=== PATIENT | male | born 1955 | race Caucasian/White ===

== ENCOUNTER → 2016-11-25 | Outpatient (CLI) | payer OTHER ==
[~2016-11-25] VITALS: Ht 167.6 cm; Wt 83.0 kg
[~2016-11-25] MED LIST: ADULT LOW DOSE81 MG PO; ALLEGRA ALLERG180 MG PO; ALLEGRA180 MG PO; AMITRIPTYLINE H10 M1 PO; ASPIR 8181 MG PO; ATIVAN0.5 MG PO; BRILINTA90 MG PO; CALCIUM; CALCIUM 600 +1 EAC9 PO; CARAFATE 1 GM TA1 G1 PO; CARDIZEM CD240 MG PO; CARVEDILOL12.5 MG PO; CELEBREX 200 M200 MG PO; CHONDROITIN SU250 MG PO; COREG PO; CRESTOR20 MG PO; DICLOFENAC SODI75 M1 PO; DIPHENHIST50 MG PO; FENTANYL PA12 MCG/HR TD; FISH OIL 1,0001 EAC5 PO; GLUCOSAMINE HC500 MG; HYDROCODON-ACE1 EAC8 PO; HYDROCODONE-AP1 EA11 PO; HYDROCODONE-AP1 EAC6 PO; HYDROXYZINE HCL25 M1 PO; HYSINGLA ER20 MG PO; HYSINGLA ER40 MG PO; LEVSIN-SL0.125 MG SL; LIPITOR40 MG PO; LISINOPRIL20 MG PO; MAGNES; MULTIVITAMINS; NAPROSYN375 MG PO; NEURONTIN300 MG PO; NEURONTIN600 MG PO; NITROGLYCERIN0.4 MG SL; NORCO 5-325 TA1 EACH PO; OMEPRAZOLE 20 M20 MG PO; OXYCODONE-ACET1 EACH PO; PERCOCET 5-3251 EACH PO; PLAVIX 75 MG TA75 M1 PO; PREDNISONE 10 M10 M1; PROTONIX 20 MG20 M1 PO; PROTONIX 20 MG20 MG PO; PROTONIX40 M1 PO; PROTONIX40 M2 PO; RANEXA500 MG PO; RANITIDINE 150150 MG PO; RELAFEN750 MG PO; SUBOXONE 2 MG-1 EACH SL; TIZANIDINE HCL 22 M1 PO; TORVASTATIN PO; VITAMIN B-12500 MCG PO; VITAMIN D35000 UNI1; VITAMIN D400 UNI1 PO; VOLTAREN GEL 1100 G1 TOP; VOLTAREN GEL 1100 G2 TOP; ZANAFLEX2 M1 PO; ZANAFLEX4 MG PO; ZOCOR80 MG PO; [UNRECOGNIZED DRUG - OTHER]
--- NOTE | ~2016-11-25 | HPC ---
[facility] [place] [address] PAIN MANAGEMENT CONSULTATION Name: SCOOTER GATES Room #: REG MYRA Barcenas#: [id number] Admission: 11/25/16 Attend Phys: Felipe Simpson DO Discharge: Date of : 55 Report #: [id number] THIS REPORT FOR: //name// CC: Ton Simpson HISTORY OF PRESENT ILLNESS: The patient is a 61-year-old gentleman typically treated for axial back pain, chest pain, DJD, right shoulder requiring complex medication management. Last seen in the pain clinic 08/31/2016. The patient was having some increasing pain issues, ended up using a short course (1 month) of Duragesic 12 mcg and continued hydrocodone for breakthrough pain 5 mg 1 tablet 2-3 times a day, limit 75 tablets for 30 days. I gave him a second prescription to be released in 4 weeks for simply hydrocodone alone without Duragesic. Urine drug screen 09/30/2016 was positive for prescribed medication. He returns to the pain clinic today, we had a prolonged visit from 10:20-10:47, greater than 30% of the 25+ minute visit was spent in counseling the patient. Has a long history of symptoms subsequent to our last visit. 10/13/2016, the patient noted a significant exacerbation of pain with paresthesia in his lower legs bilateral and subjectively in his hands. The patient is currently on Plavix due to a recent cardiac cath and angioplasty. The patient claims he developed significant bruise in the left lower extremity after developing what he felt like a "alok horse " in his calf. He is fairly dramatic in describing his symptoms, notes that his prayer group prayed for him and symptoms spontaneously resolved. Overall, he states in the 10-day course between 10/13/2016 to 10/23/2016, all of the radicular symptoms in his hands and right foot resolved, the left leg pain got dramatically better, now has a small paresthesia distal aspect of the left foot. Ongoing pain in the right knee following a misstep and some minor trauma to the right knee at the beginning of the year. He states he had fluid on the knee and ecchymosis in the area, but this too seemingly resolved. Currently, taking hydrocodone 5/325 one or two a day with overall improvement of baseline pain. Notes today subjective pain score is typically 3 on a 0-10 visual analog scale. Primary pain, most recently right knee, left chest and chronically right shoulder. PHYSICAL EXAMINATION: GENERAL: Shows a 61-year-old gentleman, BMI is 29.6 kilograms per meter squared. Blood pressure 148/89, pulse 71, respirations 16. NEUROLOGIC: Alert and oriented to person, place and time, judged to be a reasonable historian, modest. MUSCULOSKELETAL: Decreased range of motion right shoulder. Chest pain is not reproducible with palpation. EXTREMITIES: Rises from chair using armrest. Gait is tandem. Right knee shows the ligaments intact including medial and lateral collaterals as well as anterior and posterior cruciate ligaments. Patellar is easily deviated without crepitance, though he does have a little sense of fullness in the posterior [address] [address] PAIN MANAGEMENT CONSULTATION Name: SCOOTER GATES Room #: REG [facility] Swapna#: [id number] Admission: 11/25/16 Attend Phys: Felipe Simpson, DO Discharge: Date of : 55 Report #: [id number] aspect of the knee (Baldwin cyst?). Distally lower extremity strength to dorsiflexion, plantar flexion, extension, flexion is good. Some subjective pain in the right knee with resistance to lower extremity extension. Gait is generally tandem. We reviewed the fact that opiate medications are being used to provide analgesia adequate to support activities of daily living, not attempting to achieve a specific pain score on the 0-10 Visual Analog Scale. The current opiate medications are providing sufficient analgesia to allow the patient to participate in activities of daily living. The patient is not exhibiting any aberrant behavior suggestive of drug diversion. The patient is not having any adverse reactions to medications. The patient is not suffering from daytime somnolence or mental acuity changes. The patient is managing opiate-induced constipation with appropriate vtji-dom-rdgsspz agents and dietary considerations. The patient was counseled on concern for caution with operating a motor vehicle while using opiate medications. A physical exam was performed and the patient's functional status was evaluated. All patients with back pain were advised against the bed rest greater than 4 days and were advised to return to normal activities. Pain score assessment was noted and the treatment plan was reviewed with the patient. All current medications, both prescribed and OTC were reviewed and reconciled on the electronic medical record. Tobacco screening was accomplished and smoking cessation was advised when indicated. BMI was noted and diet/exercise modification was recommended for all patients following outside normal parameters. I reviewed with the patient today their responsibilities to safeguard prescription medications, reviewed their responsibility to utilize medications only as prescribed by the physician. They are to seek and receive pain medications only from 1 physician group ( [facility]). They are to use 1 pharmacy and keep the clinic informed if they change pharmacies. Their responsibilities include making followup visits in a timely fashion and to avoid abrupt discontinuation of medication usage. Their responsibilities further include bringing their medications (bottles from the pharmacy with residual pills) to the visit for possible confirmation of pill counts and the patient understands it is their responsibility to submit to random drug screens to ensure both that the medications prescribed are present, and that no other controlled substances are present. All prescriptions provided today were generated electronically. ASSESSMENT: Axial back pain, chest pain historically secondary to factor X, angina, right shoulder degenerative joint disease by history requiring complex medication management. RECOMMENDATIONS: Continue hydrocodone 5/325 one tablet 2-3 times a day, limit 75 tablets for 30 days. I have taken the liberty of writing for 2 months of current medication, continue tizanidine 4 mg up to 3 times a day and [address] [address] PAIN MANAGEMENT CONSULTATION Name: SCOOTER GATES Room #: REG CL Swapna#: [id number] Admission: 11/25/16 Attend Phys: Feilpe Simpson DO Discharge: Date of : 55 Report #: [id number] gel topically for right knee. The patient was discharged in good and stable condition. <ELECTRONICALLY SIGNED> By: Felipe Simpson DO 11/29/16 1228 [id number] Felipe Simpson DO /nt
[2016-11-25 10:18] VITALS: BP 148/89
== END | disposition home or self-care (01) ==
LOC: PAIN 07:09
DX: M54.9 Dorsalgia, unspecified (principal); R07.9 Chest pain, unspecified; G89.29 Other chronic pain; I20.9 Angina pectoris, unspecified; M19.011 Primary osteoarthritis, right shoulder

== ENCOUNTER → 2017-01-31 | Outpatient (CLI) | payer OTHER ==
[~2017-01-31] VITALS: Ht 167.6 cm; Wt 83.0 kg
--- NOTE | ~2017-01-31 | HPC ---
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 He has had annual cardiac cath due to this, last fall he had cardiac cath and has first stent placed. He is now on Brilinta. Last visit, he was having some increasing pain in his right knee. I thought it detected some fullness in the posterior aspect, referred to orthopedics. They decided he did not have a Baldwin cyst and apparently did a steroid injection about 2 weeks ago in his knee. The patient states this afforded "2 weeks" of relief, pain remains problematic. He rates his pain 2-3 presently, 5 on a 0-10 visual analog scale at worse. Chronic pain left chest, right knee and right shoulder. He tells me though he has been taking tizanidine for some time he thinks it makes him "dizzy" at bedtime. He does take it only at night. This is the first time he has relayed this information to me. I had increased the dose from 2 to 4 mg sometime ago. I suggested drop down to 2 mg or simply discontinue, it is not the as needed to be "weaned off." We talked today at length about increasing physical activity. He is actually scheduled to start physical therapy for his knee next week. He tells me that he is disabled and has been actually disabled for quite some time. I asked him what he does during the day. 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 PHYSICAL EXAMINATION: Shows a 61-year-old gentleman, BMI is 29.6 kilograms per meter squared. Blood pressure 142/77, pulse 74, respirations 15. Again, subjective pain score 2-3 on a 0-10 visual analog scale at present, primarily left chest, right knee, chronic right shoulder. Rises from chair easily. Gait is actually tandem. Lower extremity strength appears preserved. We reviewed the fact that opiate medications are being used to provide analgesia adequate to support activities of daily living, not attempting to achieve a specific pain score on the 0-10 Visual Analog Scale. The current opiate medications are providing sufficient analgesia to allow the patient to participate in activities of daily living. The patient is not exhibiting any aberrant behavior suggestive of drug diversion. The patient is not having any adverse reactions to medications. The patient is not suffering from daytime somnolence or mental acuity changes. The patient is managing opiate-induced constipation with appropriate kcab-url-ffggqni agents and dietary [address] [address] PAIN MANAGEMENT CONSULTATION Name: SCOOTER GATES Room #: REG MYRA Barcenas#: [id number] Admission: 01/31/17 Attend Phys: Felipe Simpson DO Discharge: Date of : 55 Report #: [id number] considerations. The patient was counseled on concern for caution with operating a motor vehicle while using opiate medications. A physical exam was performed and the patient's functional status was evaluated. All patients with back pain were advised against the bed rest greater than 4 days and were advised to return to normal activities. Pain score assessment was noted and the treatment plan was reviewed with the patient. All current medications, both prescribed and OTC were reviewed and reconciled on the electronic medical record. Tobacco screening was accomplished and smoking cessation was advised when indicated. BMI was noted and diet/exercise modification was recommended for all patients following outside normal parameters. I reviewed with the patient today their responsibilities to safeguard prescription medications, reviewed their responsibility to utilize medications only as prescribed by the physician. They are to seek and receive pain medications only from 1 physician group ( [facility]). They are to use 1 pharmacy and keep the clinic informed if they change pharmacies. Their responsibilities include making followup visits in a timely fashion and to avoid abrupt discontinuation of medication usage. Their responsibilities further include bringing their medications (bottles from the pharmacy with residual pills) to the visit for possible confirmation of pill counts and the patient understands it is their responsibility to submit to random drug screens to ensure both that the medications prescribed are present, and that no other controlled substances are present. All prescriptions provided today were generated electronically. The patient continues to take gabapentin 600 mg 4 times a day. We will discontinue tizanidine, continue hydrocodone 5/325, use this fairly infrequently. I have elected to give him a prescription for 75 tablets with a second prescription to release in 4 weeks for 75 tablets. Typically 150 tablets should last him about 3 months. We will see him back at that time, earlier if needed. We reviewed his prior urine drug screen from 09/30/2016, positive for prescribed medications, hydrocodone, but no tizanidine. Again, suggest discontinue tizanidine. Discharged in good and stable condition, the patient was seen from approximately 10 a.m. to 10:30. Greater than 50% of this time was spent reviewing the patient's health history, counseling the patient, encouraged increased physical activity and PT. By: [id number] Felipe Simpson DO /nt
[2017-01-31 10:03] VITALS: BP 142/77
== END ==
LOC: PAIN 06:41
DX: R07.89 Other chest pain (principal); M25.561 Pain in right knee; M25.511 Pain in right shoulder; I10 Essential (primary) hypertension

== ENCOUNTER → 2017-04-01 | Outpatient (CLI) | payer OTHER ==
[~2017-04-01] VITALS: Ht 167.6 cm; Wt 79.4 kg
--- NOTE | ~2017-04-01 | HPC ---
[facility] [place] [address] [place] [address] PAIN MANAGEMENT CONSULTATION Name: SCOOTER GATES Room #: REG MYRA Swapna#: [id number] Admission: 04/01/17 Attend Phys: Dulce Maria Ybarra MD Discharge: Date of : 55 Report #: [id number] THIS REPORT FOR: //name// CC: Dulce Maria Ann DATE OF SERVICE: 04/01/2017 FOLLOWUP COMPLAINT: Here for medication renewal. FOLLOWUP HISTORY OF PRESENT ILLNESS: The patient is a 61-year-old gentleman who has been followed in the pain clinic because of chronic pain involving his right shoulder. He states that he may have to have the shoulder revision. He has had a number of operations on the shoulder in the past. He has some right knee pain, some left chest pain. Overall, he feels that his pain has improved with use of his current medical regimen. He was taking tizanidine. He felt that this made him dizzy. He notes now that he has not used it, it increased pain and muscle spasms. He feels that taking one-half of a pill, which would be about 2 mg was more efficacious with less of dizziness. He would like to have this medication restarted at this time. PHYSICAL EXAMINATION: The patient is alert. He appears to be taking his medication as prescribed. He does not have any problems with mentation. Blood pressure 110/72, pulse 58, respiratory rate 14, room air saturation 98%. Height 5 feet 6 inches, weight 79 kilograms, BMI is 28.3. The patient has not fallen since we saw him last and has suffered in the past from dizziness and vertigo. IMPRESSION: 1. Chronic left chest pain. 2. Right knee pain. 3. Right shoulder pain with possibility of having a reevaluation and possible surgery in the future. RECOMMENDATIONS: We discussed treatment options with the patient. We will continue with his current medical regimen of tizanidine 2 mg 1 p.o. b.i.d. as needed, hydrocodone 5/325, 70 tablets, gabapentin 600 mg q.i.d. on a regular basis. We would like to thank you for letting us participate in his care. We hope he continues to improve. By: [id number] Dulce Maria Ybarra MD /jameson
[2017-04-01 08:10] VITALS: BP 110/72
== END | disposition home or self-care (01) ==
LOC: PAIN 06:32
DX: M25.511 Pain in right shoulder (principal); M25.561 Pain in right knee; R07.9 Chest pain, unspecified

== ENCOUNTER → 2017-04-25 | Outpatient (CLI) | payer OTHER ==
[~2017-04-25] VITALS: Ht 167.6 cm; Wt 81.8 kg
[~2017-04-25] MED LIST changes: +NORVASC5 MG PO; +TESTOSTERO200 MG/1 M IM
--- NOTE | ~2017-04-25 | HPC ---
[facility] [place] [address] [place] [address] PAIN MANAGEMENT CONSULTATION Name: SCOOTER GATES Room #: REG MYRA Swapna#: [id number] Admission: 04/25/17 Attend Phys: Felipe Simpson DO Discharge: Date of : 55 Report #: [id number] THIS REPORT FOR: //name// CC: Ton Simpson The patient is a 61-year-old gentleman, long known to the pain clinic, typically treated for chest wall plan. He has an atypical cardiac disease (cardiac factor X), right shoulder pain, right knee pain as primary pain generators. He was last seen in the pain clinic by my partner, Dr. Jax Ybarra on 04/01/2017, continued on his baseline medication including hydrocodone 5/325, limit 75 tablets for 30 days; gabapentin 600 mg up to 4 a day, and tizanidine 2 mg b.i.d. Tizanidine was decreased from 4 mg due to some subjective vertigo and presyncope with 4 mg tablet. He returns to pain clinic today. Planning on moving forward with right shoulder rotator cuff repair by Dr. Tim Carrillo on the . The patient has had multiple surgeries on his right shoulder. He notes otherwise his pain is a 5-6 on a 0-10 visual analog scale. He notes ongoing pain, right knee, right shoulder and chest. Describes chronic dull pressure issues. PHYSICAL EXAMINATION: Shows a 61-year-old gentleman, BMI is 29.1 kg/m2. Vital signs are stable as noted in the EMR. Cervical range of motion is adequate. Right shoulder range of motion is modestly diminished. Diffuse chest pain. Gait is tandem. He has had issues with ballotable right knee edema, though, none is present at this time. Last urine drug screen 09/30/2016, was positive for prescribed medication. ASSESSMENT: Symptomatic chronic chest pain secondary to cardiac factor X, right shoulder pain secondary to degenerative joint disease and rotator cuff tear, right knee degenerative joint disease and osteoarthritis pain, chronic. We reviewed the fact that opiate medications are being used to provide analgesia adequate to support activities of daily living, not attempting to achieve a specific pain score on the 0-10 Visual Analog Scale. The current opiate medications are providing sufficient analgesia to allow the patient to participate in activities of daily living. The patient is not exhibiting any aberrant behavior suggestive of drug diversion. The patient is not having any adverse reactions to medications. The patient is not suffering from daytime somnolence or mental acuity changes. The patient is managing opiate-induced constipation with appropriate luiw-cop-eqidcve agents and dietary considerations. The patient was counseled on concern for caution with operating a motor vehicle while using opiate medications. A physical exam was performed and the patient's functional status was evaluated. All patients with back pain were advised against the bed rest greater than [address] [place] [address] PAIN MANAGEMENT CONSULTATION Name: SCOOTER GATES Room #: REG [facility].#: [id number] Admission: 04/25/17 Attend Phys: Felipe Simpson DO Discharge: Date of : 55 Report #: [id number] days and were advised to return to normal activities. Pain score assessment was noted and the treatment plan was reviewed with the patient. All current medications, both prescribed and OTC were reviewed and reconciled on the electronic medical record. Tobacco screening was accomplished and smoking cessation was advised when indicated. BMI was noted and diet/exercise modification was recommended for all patients following outside normal parameters. I reviewed with the patient today their responsibilities to safeguard prescription medications, reviewed their responsibility to utilize medications only as prescribed by the physician. They are to seek and receive pain medications only from 1 physician group ( [facility]). They are to use 1 pharmacy and keep the clinic informed if they change pharmacies. Their responsibilities include making followup visits in a timely fashion and to avoid abrupt discontinuation of medication usage. Their responsibilities further include bringing their medications (bottles from the pharmacy with residual pills) to the visit for possible confirmation of pill counts and the patient understands it is their responsibility to submit to random drug screens to ensure both that the medications prescribed are present, and that no other controlled substances are present. All prescriptions provided today were generated electronically. RECOMMENDATION: We will continue baseline medication unchanged, hydrocodone 5/325, limit 75 tablets for [address] Carrillo wants to write for a short course of the postoperative narcotic, I am okay with that, typically with shoulder immobilized for 6 weeks. Postoperative time , I did take the liberty of changing his release in 4 weeks prescription to increase the tablets from 75-90 tablets for 30 days (hydrocodone 5/325) to enable a little increase use during his acute rehab following that shoulder. I will see him back in 2 months for reevaluation, we will likely drop back to 75 tablets (hydrocodone 5/325), continue the tizanidine 2 mg and gabapentin unchanged. Discharged in good and stable condition. By: [id number] Felipe Simpson, DO /nt
[2017-04-25 10:30] VITALS: BP 133/77
== END | disposition home or self-care (01) ==
LOC: PAIN 06:39
DX: R07.89 Other chest pain (principal); M19.011 Primary osteoarthritis, right shoulder; M75.101 Unspecified rotator cuff tear or rupture of right shoulder, not specified as traumatic; G89.29 Other chronic pain; Z98.890 Other specified postprocedural states; Z88.0 Allergy status to penicillin; Z91.040 Latex allergy status; Z88.8 Allergy status to other drugs, medicaments and biological substances; Z79.82 Long term (current) use of aspirin; Z79.899 Other long term (current) drug therapy

== ENCOUNTER → 2017-06-24 | Outpatient (CLI) | payer OTHER ==
[~2017-06-24] VITALS: Ht 167.6 cm; Wt 79.5 kg
[~2017-06-24] MED LIST changes: +PERCOCET 7.5-31 EACH PO; +RANEXA1000 MG PO
--- NOTE | ~2017-06-24 | HPC ---
[facility] [place] [address] PAIN MANAGEMENT CONSULTATION Name: SCOOTER GATES Room #: REG MYRA Barcenas#: [id number] Admission: 06/24/17 Attend Phys: Felipe Simpson DO Discharge: Date of : 55 Report #: [id number] THIS REPORT FOR: //name// CC: Ton Simpson DATE OF SERVICE: 06/24/2017 The patient is a 61-year-old gentleman well known to the [facility], long treated for chest wall pain. He has cardiac factor X, a coronary condition, which does cause some transient ischemia, though it is of microvascular disease and typically does not require endovascular intervention, though he has had cardiac stent within the past year. He has had cardiac factor X for some 2-3 decades now. Also he is having ongoing right shoulder pain, actually chronic bilateral shoulder pains, but did have his fifth right shoulder surgery, 05/09, with Dr. Carrillo. I had enabled him to get analgesics from Dr. Carrillo ostensibly thinking this would last about 2-4 weeks. He has had actually 200 Percocet 7.5/325 tablets since surgery on 05/09/2017. He had 40 tablets dispensed, 05/09/2017, 40 tablets dispensed on 05/16/2017, 60 tablets dispensed on 05/20/2017 and most recently had 60 tablets dispensed on 05/31/2017. He tells me he has about half of this latter prescription left. I suggested that patient should discontinue Percocet when he finishes current prescription. He understands that there will certainly be pain in his bilateral shoulders and ongoing chest pain. We are simply trying to help decrease pain to the point that he is a little more functional. PHYSICAL EXAMINATION: Shows a 61-year-old gentleman. BMI is 28.3 kg/m2. Alert and oriented to person, place and time. Judged to be a reasonable historian. Complaining of ongoing pain, right shoulder and left chest. Rates his pain as 3 on a VAS. 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 Blood pressure 151/92, pulse 70, respirations 16. Cervical range of motion is full. Upper extremity strength does show some decreased range of motion, abduction and extension on the right arm, though it is fairly nominal. Hand grasp is symmetric. Rises from chair using armrest. Gait is tandem. Lower extremity strength is preserved. Lumbar flexion is good. We reviewed the fact that opiate medications are being used to provide analgesia adequate to support activities of daily living, not attempting to achieve a specific pain score on the 0-10 Visual Analog Scale. The current opiate medications are providing sufficient analgesia to allow the patient to participate in activities of daily living. The patient is not exhibiting any aberrant behavior suggestive of drug diversion. The patient is not having any adverse reactions to medications. The patient is not suffering from daytime somnolence or mental acuity changes. The patient is managing opiate-induced constipation with appropriate jlom-yuv-ddhnkkx agents and dietary [address] [address] PAIN MANAGEMENT CONSULTATION Name: KODYSCOOTEREDGAR SIMPSON Room #: REG MYRA Barcenas#: [id number] Admission: 06/24/17 Attend Phys: Felipe Simpson DO Discharge: Date of : 55 Report #: [id number] considerations. The patient was counseled on concern for caution with operating a motor vehicle while using opiate medications. A physical exam was performed and the patient's functional status was evaluated. All patients with back pain were advised against the bed rest greater than 4 days and were advised to return to normal activities. Pain score assessment was noted and the treatment plan was reviewed with the patient. All current medications, both prescribed and OTC were reviewed and reconciled on the electronic medical record. Tobacco screening was accomplished and smoking cessation was advised when indicated. BMI was noted and diet/exercise modification was recommended for all patients following outside normal parameters. I reviewed with the patient today their responsibilities to safeguard prescription medications, reviewed their responsibility to utilize medications only as prescribed by the physician. They are to seek and receive pain medications only from 1 physician group ( [facility]). They are to use 1 pharmacy and keep the clinic informed if they change pharmacies. Their responsibilities include making followup visits in a timely fashion and to avoid abrupt discontinuation of medication usage. Their responsibilities further include bringing their medications (bottles from the pharmacy with residual pills) to the visit for possible confirmation of pill counts and the patient understands it is their responsibility to submit to random drug screens to ensure both that the medications prescribed are present, and that no other controlled substances are present. All prescriptions provided today were generated electronically. ASSESSMENT: Chronic pain syndrome requiring complex medication management, chest wall pain in a gentleman with a history of cardiac factor X. Bilateral shoulder degenerative joint disease, status post most recent right shoulder surgery. He has had about 5 surgeries right shoulder and one surgery on left shoulder. He requires high-risk complex medication management. RECOMMENDATION: Long discussion with the patient today about therapeutic options. 1. He may continue the most recent prescription from Dr. Carrillo, but we will allow him no other opiates from other physicians. We will resume strict adherence to our opiate consent to treat contract. 2. I will take the liberty of renewing hydrocodone 5/325 one tablet 2-3 times a day. I will take the liberty of writing for 2 months' current medications. Continue gabapentin 600 mg q.i.d. Zanaflex 2 mg t.i.d. with 2-3 at bedtime, dispensed 150 tablets with 2 refills. It appears the last urine drug screen was on 09/30/2016. At next visit, we will want to get a buccal drug swab. No aberrant behavior suggestive for drug diversion, simply ensuring compliance with our opiate consent to treat contract. [address] [address] PAIN MANAGEMENT CONSULTATION Name: SCOOTER GATES [facility] [id number] Admission: 06/24/17 Attend Phys: Felipe Simpson DO Discharge: Date of : 55 Report #: [id number] In total I spent approximately 25 minutes with the patient today reviewing interval history, medical issues and concerns and stressing need to wean off the oxycodone and continue hydrocodone simply for current pain concerns. Discharged in good and stable condition after a 25-minute visit, greater than 50% of the time spent counseling the patient. After discharge, I was informed by the [facility] outpatient pharmacy that the patient had in fact filled Rx equal to 300, not 200 oxycodone tablets since his surgery, the last fill being less than two weeks ago. I did request that the pharmacy NOT fill his current Rx for two weeks (four weeks after last Rx for percocet from his orthopedic surgeon. <ELECTRONICALLY SIGNED> By: Felipe Simpson DO 06/27/17 1253 1201 2037 Felipe Simpson DO /jameson
[2017-06-24 09:29] VITALS: BP 151/92
== END ==
LOC: PAIN 07:00
DX: M19.012 Primary osteoarthritis, left shoulder (principal); M19.011 Primary osteoarthritis, right shoulder; G89.29 Other chronic pain

== ENCOUNTER → 2017-11-14 | Outpatient (CLI) | payer OTHER ==
[~2017-11-14] VITALS: Ht 167.6 cm; Wt 76.0 kg
[~2017-11-14] MED LIST changes: +DILAUDID 2 MG TA2 MG PO; +SUBOXONE 8 MG-1 EAC3 SUBLING; +ZUBSOLV 8.6-2.1 EACH SUBLING
--- NOTE | ~2017-11-14 | HPC ---
[facility] [place] [address] PAIN MANAGEMENT CONSULTATION Name: KODYSCOOTER CALVIN Room #: REG MYRA Barcenas#: [id number] Admission: 11/14/17 Attend Phys: Felipe Simpson DO Discharge: Date of : 55 Report #: [id number] THIS REPORT FOR: //name// CC: Ton Simpson DATE OF SERVICE: 11/14/2017 HISTORY OF PRESENT ILLNESS: The patient is a 62-year-old gentleman, typically treated for chest pain. He has cardiac factor X, had been treated for years for right shoulder and osteoarthritic pain of his right knee. Requires high risk complex medication management. He ultimately did have an endovascular cardiac stent placed, I believe last year. He had trouble with ethanol habituation. We had weaned him to sobriety. He had surgery (shoulder arthroscopy) by Dr. Carrillo with some overall improvement of pain. He was last seen in the pain clinic on 09/01/2017. He was on Ranexa, which is helping with his chest pain. He was down to low-dose hydrocodone but following 2 orthopedic injuries, hamstring tear of his right leg affecting his ambulation and status post shoulder arthroscopy, we had increased hydrocodone a little bit, at last visit I had written prescriptions for hydrocodone 5/325, limit 70 tablets for 30 days with a prescription to be released on 09/01/2017 and a second 4-week release prescription. He returns to pain clinic today. He noted with adam that he had resumed drinking some alcohol, late August or early September. He states that he had trouble weaning off, but is now back with AA and is pursuing sobriety, states he has been sober now for several weeks. He notes his subjective pain score is 3-4 on a VAS. Pain is in his left chest wall, right knee and bilateral shoulders. Notes pain is exacerbated with activity. PHYSICAL EXAMINATION: GENERAL: Shows a 62-year-old gentleman, BMI is 27.1 kilograms per meter squared. Alert and oriented to person, place and time; judged to be a reasonable historian. VITAL SIGNS: Blood mqtsisdj543/80, pulse 64, respirations are 14. MUSCULOSKELETAL: Cervical range of motion is good, actually upper extremity strength is fairly symmetric and shoulder range of motion is good. Nominally antalgic gait. Diffuse low back pain, no discrete trigger points noted. We reviewed the fact that opiate medications are being used to provide analgesia adequate to support activities of daily living, not attempting to achieve a specific pain score on the 0-10 Visual Analog Scale. The current opiate medications are providing sufficient analgesia to allow the patient to [address] [address] PAIN MANAGEMENT CONSULTATION Name: KODYSCOOTER ADORNODERICK Room #: REG MYRA Barcenas#: [id number] Admission: 11/14/17 Attend Phys: Felipe Simpson DO Discharge: Date of : 55 Report #: [id number] participate in activities of daily living. The patient is not exhibiting any aberrant behavior suggestive of drug diversion. The patient is not having any adverse reactions to medications. The patient is not suffering from daytime somnolence or mental acuity changes. The patient is managing opiate-induced constipation with appropriate osiq-nax-nzouyfj agents and dietary considerations. The patient was counseled on concern for caution with operating a motor vehicle while using opiate medications. A physical exam was performed and the patient's functional status was evaluated. All patients with back pain were advised against the bed rest greater than 4 days and were advised to return to normal activities. Pain score assessment was noted and the treatment plan was reviewed with the patient. All current medications, both prescribed and OTC were reviewed and reconciled on the electronic medical record. Tobacco screening was accomplished and smoking cessation was advised when indicated. BMI was noted and diet/exercise modification was recommended for all patients following outside normal parameters. I reviewed with the patient today their responsibilities to safeguard prescription medications, reviewed their responsibility to utilize medications only as prescribed by the physician. They are to seek and receive pain medications only from 1 physician group ( [facility]). They are to use 1 pharmacy and keep the clinic informed if they change pharmacies. Their responsibilities include making followup visits in a timely fashion and to avoid abrupt discontinuation of medication usage. Their responsibilities further include bringing their medications (bottles from the pharmacy with residual pills) to the visit for possible confirmation of pill counts and the patient understands it is their responsibility to submit to random drug screens to ensure both that the medications prescribed are present, and that no other controlled substances are present. All prescriptions provided today were generated electronically. RECOMMENDATIONS: Long discussion with the patient today about sobriety and weaning opiate analgesics. He was seen for approximately 25 minutes today. Greater than 50% of time spent counseling the patient. I reviewed his buccal drug swab from 09/20/2017, it was positive for gabapentin and lorazepam, negative for hydrocodone. He admitted to having taken his hydrocodone a little more aggressively and we expected it to be negative. Today, we are continuing to wean opiate. I have taken the liberty of renewing prescription for hydrocodone 5/325, limit 60 tablets for 30 days with 4-week release prescription again for 60 tablets, but will have him start to wean that down to 3 and then 2 a day. I will see him back in 10-12 weeks for reevaluation, simply as followup. [facility] [address] [place] [address] PAIN MANAGEMENT CONSULTATION Name: SCOOTER GATES Room #: REG MYRA Barcenas#: [id number] Admission: 11/14/17 Attend Phys: Felipe Simpson DO Discharge: Date of : 55 Report #: [id number] Discharged in good stable condition after moderately prolonged visit, primarily spent counseling the patient regarding maintaining sobriety, weaning opiate analgesics. <ELECTRONICALLY SIGNED> By: Felipe Simpson DO 11/16/17 0816 1222 043 Felipe Simspon DO /nt
[2017-11-14 10:57] VITALS: BP 139/80
== END ==
LOC: PAIN 11-07 09:04
DX: M17.11 Unilateral primary osteoarthritis, right knee (principal); M25.512 Pain in left shoulder; Z79.899 Other long term (current) drug therapy

== ENCOUNTER → 2018-01-05 | Outpatient (CLI) | payer OTHER ==
[~2018-01-05] VITALS: Ht 167.6 cm; Wt 72.9 kg
--- NOTE | ~2018-01-05 | HPC ---
[facility] [place] [address] PAIN MANAGEMENT CONSULTATION Name: SCOOTER GATES Room #: REG GATOLowell Barcenas#: [id number] Admission: 01/05/18 Attend Phys: Felipe Simpson DO Discharge: Date of : 55 Report #: [id number] THIS REPORT FOR: //name// CC: Ton Simpson The patient is a 62-year-old gentleman typically treated for chest pain, has cardiac factor X, coronary artery disease, has some axial back pain and ongoing shoulder pain. He was last seen in pain clinic on 11/14/2017. The patient was continued on hydrocodone wean, taking 5 mg tablet 1-2 a day for both chest and shoulder pain. He returns to pain clinic today, we had a prolonged visit from 14:59-15:25. Greater than 50% of the 25+ minute visit was spent counseling the patient. The patient has struggled with sobriety. Had been in AA for years. Started drinking again in August and September. When I saw him on November 14, he told me that he had been sober, but he apparently started drinking directly after that and continued to drink fairly aggressively, but states he got sober again, 30 days ago, 12/08/2017. The patient tells me he is having increasing pain in his right shoulder. Did show me pictures of drainage from the shoulder and indeed he does have hypertrophy of the anterior scar and the shoulder is erythematous. He is scheduled for debridement of the surgical site 7:[address] Tim Carrillo. He apparently did get in to see Dr. Carrillo and they cultured the arm. 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 The patient had reverse shoulder arthroplasty in 2012. This past April, he had a rotator cuff repair. It is this latter surgical scar that apparently had been weeping. The patient states that his pain became problematic and he did get prescription for Percocet . He had 16 tablets filled 01/01/2018. Again, this should be sufficient to get him to surgery, tomorrow 07. The patient was quite random and tangential in his conversation today. He is clearly seeing some ill effects from oxycodone. This likely in combination with prior prednisone Dosepak, which was given 12/29/2017, he just finished the tapering dose, seems to be causing some cognitive impairment and brijesh. The patient in another arc of the conversation tells me that he has been having trouble with cognitive function, word searching and memory. States he had followed up with Dr. Ann who apparently gave him a "mini cog" function test. Per the patient he scored "low normal." He believes that Dr. Ann is referring him to a neurologist for more thorough cognitive function workup which [address] [address] PAIN MANAGEMENT CONSULTATION Name: SCOOTER GATES Room #: REG [facility] Swapna#: [id number] Admission: 01/05/18 Attend Phys: Felipe Simpson DO Discharge: Date of : 55 Report #: [id number] certainly would seem appropriate. Physical exam otherwise shows a 62-year-old gentleman, BMI is 26 kilograms per meter squared. Blood pressure is 141/83, pulse 67, respirations are 18. He is alert and oriented to person, place and time, judged to be a reasonable historian. Does have somewhat limited range of motion in the right shoulder to abduction though has good lower extremity strength. Again, there is hypertrophy of the anterior surgical scar and there is some erythema here. He has a dressing that he put on this morning, which shows only nominal amount of drainage. The patient states he got down to 2.5 mg hydrocodone, which was helpful for his chronic chest pain. He was taking it p.r.n. up to twice a day. I stressed that we would not be writing for any opiates for chronic chest pain at this point. Concern with recurrent issues of ethanol habituation and abuse with concurrent opiates and concern for cognitive function is simply a "recipe for disaster." I told he can use whatever pain medicines the orthopedic surgeon felt appropriate for surgical intervention tomorrow. Hopefully, it will simply be a surgical scar debridement. Worst case scenario is he may have an infected arthroplasty appliance which will require explantation. Otherwise, I told the patient we will continue him on gabapentin 600 mg q.i.d., which has been helpful for his chronic pain issues. He does take Ranexa from his senior loan officer, which has helped with the chest wall pain. I have provided prescription for tizanidine 2 mg b.i.d. for spasm and pain. The patient discharged in good and stable condition after prolonged visit. We will phone in a prescription for gabapentin and/or tizanidine as needed in the next 3 months. I did ask him to have the surgeon provide to our office a copy of the surgical findings. <ELECTRONICALLY SIGNED> By: Felipe Simpson DO 01/06/18 0704 [id number] Felipe Simpson DO /nt
[2018-01-05 14:39] VITALS: BP 141/83
== END ==
LOC: PAIN 06:57
DX: I25.10 Atherosclerotic heart disease of native coronary artery without angina pectoris (principal); M25.511 Pain in right shoulder; M54.9 Dorsalgia, unspecified

== ENCOUNTER → 2018-01-26 | Outpatient (CLI) | payer OTHER ==
[~2018-01-26] VITALS: Ht 167.6 cm; Wt 72.7 kg
[~2018-01-26] MED LIST changes: -DILAUDID 2 MG TA2 MG PO
--- NOTE | ~2018-01-26 | HPC ---
[facility] [place] [address] PAIN MANAGEMENT CONSULTATION Name: SCOOTER GATES Room #: REG MYRA Barcenas#: [id number] Admission: 01/26/18 Attend Phys: Felipe Simpson DO Discharge: Date of : 55 Report #: [id number] THIS REPORT FOR: //name// CC: Ton Simpson HISTORY OF PRESENT ILLNESS: The patient is a 62-year-old gentleman who had long been treated for chronic chest pain. He has an unique cardiac factor X syndrome, microvascular disease affecting the coronary vessels not amenable to interventional therapy or specific vasodilatory agents. He had had some diffuse chest pain, which have been treated with low dose opiates. We had weaned down the hydrocodone 2.5 to 5 mg p.r.n. After years of struggling with Cardiac Factor X and following with his soldering technician, he did in fact have positive findings on a cardiac cath last year and did have a stent placed. Of concern is the patient has had issues with ethanol habituation. He also had a prior right total shoulder arthroplasty several years ago, was having increasing pain and developed an infection at the area. I saw him last month, actually 1 day before going in to have surgical debridement of the right shoulder scar. At that time, I had reviewed with the patient that I was concerned for his aggressive use of opiates, we continued low dose hydrocodone 5/325, gabapentin 600 mg 4 times a day. I told him he could use short course of opiate analgesics from the orthopedic surgeon, there was concern at least per the patient that they may have to "replace the entire shoulder arthroplasty." The patient returns to pain clinic today. He is quite cognitively impaired, very tangential. Again, this is similar to his presentation at last visit. We did short inquiry noting he has had three opiate prescriptions including Percocet 5/325, hydrocodone 5/325 and hydromorphone. We reviewed the mass on his prescriptions over the last 5 days. He is taking about 10 oxycodone 5/325 along with 4 or 5 hydrocodone 5/325 a day. He claims to be "sober" for the past 50 days having relapsed with alcohol earlier in the year. Today, again he is quite distracted, tangential, clearly impaired. His right shoulder does appear better. The surgical scar has been revised, however, there is still a serosanguineous drainage coming from the anterior aspect of the scar. Fortunately, does not appear to be mucopurulent. He is afebrile. PHYSICAL EXAMINATION: Shows a 62-year-old gentleman, BMI is 25.9 kilograms per meter squared. Blood pressure 139/80, pulse 80, respirations 14, room air oxygen saturation 99%. Temperature is 98.9. Subjective pain score is 5-6 on a VAS. He has an opiate consent to treat contract 08/02/2016, but he has clearly voided this with his aggressive use of opiates in excess of the written a prescription. I did enable the patient to take short course of opiate analgesics from his orthopedic surgeon with a caveat that he take them as directed. [address] [address] PAIN MANAGEMENT CONSULTATION Name: SCOOTER GATES Room #: REG MYRA Barcenas#: [id number] Admission: 01/26/18 Attend Phys: Felipe Simpson, DO Discharge: Date of : 55 Report #: [id number] The patient states he has been in counseling, both for ethanol habituation. He does have a sponsor. He is going to weekly meetings and states he is in counseling for his "sexual addiction." We had a prolonged visit today, seen for greater than 30 minutes, 50% of this time spent counseling the patient. I am extremely concerned with his aggressive use of opiates at this point. He had complains of subjective pain in the shoulder. I suspect there is some degree of pain here, however, the patient clearly is not a candidate for aggressive use of short-acting opiates as I had stressed at the last visit. Today after a great reflection and discussion, we have elected to discontinue any short-acting opiates. Mandate the patient continue with counseling and AA meetings. We will rotate to Suboxone 06/01 one sublingual at bedtime. I wrote for 7 tablets, I gave him prescription to release in 7 days for another 7 tablets and a third prescription release in 40 days for another 7 tablets. We will see him back in 3 weeks for reevaluation. In the interval, he is to continue with alcohol sobriety, use absolutely no other opiate analgesics, continue with counseling. He is to continue with Infectious Disease and Orthopedics to follow up regarding the continued serosanguineous drainage in the right shoulder. He may require further surgery. I am really unclear about what is going on from that aspect, but he has fairly good range of motion in the right shoulder and again he is afebrile and range of motion appears adequate. We will see the patient back in 3 weeks for reevaluation. We will plan on weaning Suboxone at that time. We will absolutely get a buccal drug swab at that time. If positive for any other opiates other than Suboxone, we will recommend in hospital detoxification. Discharged in good and stable condition. <ELECTRONICALLY SIGNED> By: Felipe Simpson DO 01/27/18 0944 0911 0945 Felipe Simpson DO /nt
[2018-01-26 08:33] VITALS: BP 139/80
== END ==
LOC: PAIN 06:58
DX: G89.29 Other chronic pain (principal); R07.9 Chest pain, unspecified; Z96.651 Presence of right artificial knee joint; F11.90 Opioid use, unspecified, uncomplicated